=== PATIENT | female | born 1990 | race American Indian/Alaskan Native ===

== ENCOUNTER 2018-08-21 16:50 | Emergency (ER) | payer MEDICAID, OTHER ==
[2018-08-21 16:58] VITALS: BP 125/76
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
--- NOTE | 2018-08-21 19:04 | XRay Report ---
PROCEDURE: XR RIBS UNI W PA CHEST 3+V LT TECHNIQUE: 2 views of the left ribs and PA view of the chest HISTORY: left rib pain COMPARISONS: None available FINDINGS: Cardiomediastinal silhouette is unremarkable. No pulmonary infiltrate, effusion, or pneumothorax. No focal rib lesion or fracture is seen. IMPRESSION: No acute fracture or dislocation. This document is electronically signed by Radha Pérez MD., August 21 2018 07:02:35 PM ET
[2018-08-21] MEDS ORDERED: NORCO 5/325 PO ONE (19:53)
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
== END 2018-08-21 21:01 | disposition home or self-care (01) ==
LOC: ED 16:50
DX: M94.0 Chondrocostal junction syndrome [Tietze] (principal); J45.909 Unspecified asthma, uncomplicated
CPT/HCPCS: 99283

== ENCOUNTER 2019-05-25 08:07 | Emergency (ER) | payer OTHER, MEDICAID ==
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
== END 2019-05-25 10:36 | disposition home or self-care (01) ==
LOC: ED 08:07
DX: S39.012A Strain of muscle, fascia and tendon of lower back, initial encounter (principal); J45.909 Unspecified asthma, uncomplicated; Z79.899 Other long term (current) drug therapy; V49.49XA Driver injured in collision with other motor vehicles in traffic accident, initial encounter; Y93.89 Activity, other specified; Y92.410 Unspecified street and highway as the place of occurrence of the external cause; Y99.8 Other external cause status

== ENCOUNTER 2020-06-04 10:30 | Emergency (ER) | payer OTHER, MEDICAID ==
[2020-06-04 10:51] VITALS: BP 109/64
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
[2020-06-04] MEDS ORDERED: IBUPROFEN 600 MG TAB PO ONE (11:55)
== END 2020-06-04 12:14 | disposition home or self-care (01) ==
LOC: ED 10:30
DX: S39.012A Strain of muscle, fascia and tendon of lower back, initial encounter (principal); R51.9 Headache, unspecified; J45.909 Unspecified asthma, uncomplicated; Z79.899 Other long term (current) drug therapy; V49.49XA Driver injured in collision with other motor vehicles in traffic accident, initial encounter; Y93.89 Activity, other specified; Y92.488 Other paved roadways as the place of occurrence of the external cause; Y99.8 Other external cause status
CPT/HCPCS: 99281